=== PATIENT | male | born 1995 | race Asian ===

== ENCOUNTER 2019-12-31 03:04 | Emergency (ER) | payer OTHER ==
[~2019-12-31] VITALS: Ht 175.3 cm; Wt 86.2 kg
[2019-12-31 03:09] VITALS: Ht 175.3 cm; Wt 86.2 kg
[2019-12-31 04:00] VITALS: BP 123/81
== END 2019-12-31 04:00 | disposition home or self-care (01) ==
LOC: ED 03:04
DX: S01.81XA Laceration without foreign body of other part of head, initial encounter (principal); F10.129 Alcohol abuse with intoxication, unspecified; X83.8XXA Intentional self-harm by other specified means, initial encounter; Y93.89 Activity, other specified; Y92.89 Other specified places as the place of occurrence of the external cause; Y99.8 Other external cause status
CPT/HCPCS: 90715; J2001